=== PATIENT | female | born 1980 | race Caucasian/White ===

== ENCOUNTER 2017-01-24 03:57 | Inpatient (IN) | payer MEDICAID, OTHER ==
[~2017-01-24] VITALS: Ht 154.9 cm; Wt 113.2 kg
[2017-01-24] VITALS (8 sets, daily range): BP systolic 120–158; BP diastolic 77–90; PULSE 83–103; RESP 17–19; TEMP 98; Ht 154.9 cm; Wt 113.2 kg
[2017-01-24 04:55] LABS: ADD SCAN DIFF NO
[2017-01-24 05:47] LABS: BASOPHIL # 0.1 10^3/ul (0.0-0.1); BASOPHILS % 0.6 % (0.0-2.0); D-DIMER 1489.16 ng/ml (<460); EOSINOPHILS # 0.3 10^3/ul (0.0-0.5); EOSINOPHILS % 1.9 % (0.0-7.0); HEMATOCRIT 44.4 % (37.0-47.0); HEMOGLOBIN 14.5 g/dl (12.0-16.0); INR 0.99; LYMPHOCYTES # 3.8 10^3/ul (0.8-2.9); LYMPHOCYTES % 25.8 % (15.0-51.0); MEAN CORPUSCULAR HEMOGLOBIN 29.2 pg (29.0-33.0); MEAN CORPUSCULAR HGB CONC 32.7 g/dl (32.0-37.0); MEAN CORPUSCULAR VOLUME 89.5 fl (82.0-101.0); MEAN PLATELET VOLUME 12.7 fl (7.4-10.4); MONOCYTE # 0.7 10^3/ul (0.3-0.9); MONOCYTES % 4.6 % (0.0-11.0); NEUTROPHIL # 9.7 10^3/ul (1.6-7.5); NEUTROPHILS % 65.2 % (39.0-77.0); NUCLEATED RED BLOOD CELLS% 0.2 /100WBC (0.0-0.0); PARTIAL THROMBOPLASTIN TIME 28.1 Sec (25.0-35.0); PLATELET COUNT 162 10^3/UL (140-415); PROTIME 13.1 Sec (12.2-14.2); RED BLOOD COUNT 4.96 10^6/ul (4.20-5.40); RED CELL DISTRIBUTION WIDTH 13.5 % (11.5-14.5); WHITE BLOOD COUNT 14.9 10^3/ul (4.8-10.8)
[2017-01-24] MEDS ORDERED: MACI10TA PO (05:49)
[2017-01-24] MEDS ORDERED: SELE200T27 PO (05:49)
[2017-01-24] MEDS ORDERED: SILD25TA5 PO (05:50)
--- NOTE | 2017-01-24 06:07 | RADRPT ---
PROCEDURE: XR Chest. CLINICAL INDICATION: Chest Pain. TECHNIQUE: Portable single view of the chest COMPARISON: None. FINDINGS: The heart size appears slightly enlarged with possible prominence of the left atrial appendage. Top normal pulmonary vascularity. No definite acute infiltrate, pleural effusion, or overt congestive heart failure. No bony abnormality is seen. IMPRESSION: Probable mild cardiomegaly with slight possible left atrial appendage prominence. Top normal pulmon devang vascularity. RPTAT: HLBE Physician Stella Date Time Electronically viewed and signed by Gabrielle Eubanks Physician on 01/24/2017 06:06 LE/
[2017-01-24] MEDS ORDERED: ASPIRIN 81 MG TAB PO STA (06:09)
[2017-01-24] MEDS ORDERED: NITROGLYCERIN 2% 1 GM OINT PKT TD STA (06:09)
[2017-01-24 06:13] LABS: ALBUMIN 3.6 g/dl (3.3-4.9)
[2017-01-24] MEDS ORDERED: ALBUTEROL 0.083% (NEB) 2.5 MG/3 ML AMP HHN STA (06:13)
[2017-01-24 06:14] LABS: POTASSIUM 3.7 mmol/L (3.5-5.1)
[2017-01-24 06:16] LABS: BILIRUBIN,INDIRECT 0.2 mg/dl (0-1.1); BILIRUBIN,TOTAL 0.2 mg/dl (0.2-1.3); CREATININE 1.3 mg/dl (0.44-1.00)
[2017-01-24 06:17] LABS: ALBUMIN/GLOBULIN RATIO 0.94; CALCIUM 9.1 mg/dl (8.4-10.2); TOTAL PROTEIN 7.4 g/dl (6.1-8.1)
[2017-01-24 06:29] LABS: TROPONIN-I 0.031 ng/ml (0.00-0.12)
[2017-01-24] MEDS ORDERED: NITROGLYCERIN (SL) 0.4 MG TAB SL PRN ×2 (06:30→11:30)
[2017-01-24] MEDS ORDERED: SOD CHLORIDE 0.9% 100 ML ONE (06:45)
[2017-01-24] MEDS ORDERED: IOHEXOL 300MG/ML 150 ML BTL ONE (06:47)
[2017-01-24] MEDS ORDERED: SOD CHLORIDE 0.9% 1,000 ML IV STA (06:51)
[2017-01-24] MEDS ORDERED: BENZONATATE 100 MG CAP PO ONE (07:00)
[2017-01-24 07:05] LABS: ADD UMIC YES; URINE BILIRUBIN (Dip) NEGATIVE (NEGATIVE); URINE BLOOD (Dip) 1+ (NEGATIVE); URINE COLOR LT. YELLOW (YELLOW); URINE GLUCOSE (Dip) NEGATIVE (NEGATIVE); URINE KETONES (Dip) NEGATIVE (NEGATIVE); URINE LEUKOCYTE ESTERASE (Dip) NEGATIVE (NEGATIVE); URINE NITRITE (Dip) NEGATIVE (NEGATIVE); URINE TOTAL PROTEIN (Dip) 1+ (NEGATIVE); URINE UROBILINOGEN (Dip) 0.2 E.U./dL (0.1-1.0)
[2017-01-24 07:21] LABS: TRICHOMONAS,URINE OCCASIONAL
--- NOTE | 2017-01-24 07:21 | RADRPT ---
PROCEDURE: CTA Chest. CLINICAL INDICATION: Chest pain TECHNIQUE: The study was performed utilizing a multidetector CT scanner. Direct spiral 1 mm axial sections were obtained from the thoracic inlet to the upper abdomen with the use of 100 cc of Omnipa que-300 nonionic intravenous contrast material and reformatted at 3 mm. Coronal and sagittal reforma tions were obtained along with 3-D reconstructions. The images were reviewed on a PACS workstation. One or more of the following dose reduction techniques were used: - Automated exposure control. - Adjustment of the mA and/or kV according to patient size. Use of iterative reconstruction technique. DLP 846.1 mGycm CTDIvol 56.3 and 20.1 mGy COMPARISON: No prior studies are available for comparison. FINDINGS: The pulmonary arteries are within normal limits with no filling defects present to suggest pulmonary embolus. There is no evidence of aortic dissection. There is no cardiomegaly. There is an area of localized consolidation seen at the left lung base involving the basilar segment s of the left lower lobe.. Consolidation is slightly peribronchial appearance. There is trace perib ronchial ground-glass seen within the lateral segment of the right middle lobe. The The right lung is otherwise clear. There is no effusion or pneumothorax. The airways are patent. There are no enla rged mediastinal or axillary lymph nodes. Upper abdominal structures are within normal limits. There is no acute osseous abnormality. Mild deg enerative osteophytes are seen along the anterior aspect of the thoracic vertebral bodies. IMPRESSION: No CT evidence for pulmonary embolus. There is no aortic dissection. Patchy consolidation in the left lower lobe at the base concerning for pneumonia. There is a trace a mount of peribronchial ground-glass within the lateral segment of the right middle lobe which could represent an area of localized inflammation. RPTAT: AA .Navarro Owen MD, MD Date Time Electronically viewed and signed by .Navarro Owen MD, MD on 01/24/2017 07:20 .Bayron/
[2017-01-24] MEDS ORDERED: ONDANSETRON 4 MG INJ IV PRN ×2 (08:00→11:30)
[2017-01-24] MEDS ORDERED: ACETAMINOPHEN 325 MG TAB PO PRN ×2 (08:00→11:30)
[2017-01-24] MEDS ORDERED: CEFTRIAXONE 1 GM/50 ML (PMX) 50 ML IVPB ONE (08:00)
[2017-01-24] MEDS ORDERED: AZITHROMYCIN 500MG/NS (PMX) 250 ML IVPB ONE (08:00)
--- NOTE | 2017-01-24 08:26 | ERA ---
ER Documentation Chief Complaint Date/Time DATE: 01/24/17 TIME: 08:23 Chief Complaint MIDSTERNAL CP RADIATING TO BILAT. SHOULDERS AND SOB X2 DAYS. HPI Patient is a 36-year-old female with pulmonary hypertension who presents saying "I cannot breathe". She said the symptoms started a few days ago. She has cough but no fever. She has not taken her pulmonary hypertensive medicines for the past 2 weeks because she has changed insurance. She has chest pain which she describes as a midsternal pressure which radiates to both shoulders. Upon review of old medical records the patient one previous visit to the ER in 2006. ROS All systems reviewed and are negative except as per history of present illness. Medications Home Meds Reported Medications Sildenafil Citrate* (Viagra*) 25 Mg Tablet, PO DAILY Y for HTN IN THE LUNGS, TAB 01/24/17 Selexipag (Uptravi) 200 Mcg Tablet, PO, TAB 01/24/17 Macitentan (Opsumit) 10 Mg Tablet, 10 MG PO DAILY, TAB 01/24/17 Allergies Allergies: Coded Allergies: No Known Drug Allergy (Unverified Allergy, Unknown, 01/24/17) PMhx/Soc History of Surgery: No Anesthesia Reaction: No Hx Neurological Disorder: No Hx Respiratory Disorders: No Hx Cardiac Disorders: Yes (pulmonary htn) Hx Psychiatric Problems: No Hx Miscellaneous Medical Probl: No Hx Alcohol Use: No Hx Substance Use: No Hx Tobacco Use: No Smoking Status: Never smoker FmHx Family History: coronary disease Physical Exam Vitals Vital Signs Date Time Temp Pulse Resp B/P Pulse Ox O2 Delivery O2 Flow Rate FiO2 01/24/17 07:34 81 26 136/72 97 Room Air 01/24/17 06:34 93 22 97 21 01/24/17 04:57 98.0 79 26 100 Room Air 01/24/17 04:02 98.1 109 24 161/108 98 Physical Exam Const: Mild distress Head: Atraumatic Eyes: Normal Conjunctiva ENT: Normal External Ears, Nose and Mouth. Neck: Full range of motion..~ No meningismus. Resp: Decreased breath sounds bilaterally Cardio: Tachycardic rate without murmur Abd: Soft, non tender, non distended. Normal bowel sounds Skin: No petechiae or rashes Back: No midline or flank tenderness Ext: No cyanosis, or edema Neur: Awake and alert Psych: Normal Mood and Affect Result Diagram: 01/24/17 0448 01/24/17 0448 Results 24 hrs Laboratory Tests Test 01/24/17 04:48 01/24/17 06:12 White Blood Count 14.910^3/ul Red Blood Count 4.9610^6/ul Hemoglobin 14.5g/dl Hematocrit 44.4% Mean Corpuscular Volume 89.5fl Mean Corpuscular Hemoglobin 29.2pg Mean Corpuscular Hemoglobin Concent 32.7g/dl Red Cell Distribution Width 13.5% Platelet Count 06052^3/UL Mean Platelet Volume 12.7fl Neutrophils % 65.2% Lymphocytes % 25.8% Monocytes % 4.6% Eosinophils % 1.9% Basophils % 0.6% Nucleated Red Blood Cells % 0.2/100WBC Neutrophils # 9.710^3/ul Lymphocytes # 3.810^3/ul Monocytes # 0.710^3/ul Eosinophils # 0.310^3/ul Basophils # 0.110^3/ul Nucleated Red Blood Cells # 0.010^3/ul Prothrombin Time 13.1Sec Prothrombin Time Ratio 1.0 INR International Normalized Ratio 0.99 Activated Partial Thromboplast Time 28.1Sec D-Dimer 1489.16ng/ml D-Dimer Comment Sodium Level 145mmol/L Potassium Level 3.7mmol/L Chloride Level 109mmol/L Carbon Dioxide Level 25mmol/L Anion Gap 15 Blood Urea Nitrogen 23mg/dl Creatinine 1.30mg/dl Glucose Level 78mg/dl Calcium Level 9.1mg/dl Total Bilirubin 0.2mg/dl Direct Bilirubin 0.00mg/dl Indirect Bilirubin 0.2mg/dl Aspartate Amino Transf (AST/SGOT) 36IU/L Alanine Aminotransferase (ALT/SGPT) 58IU/L Alkaline Phosphatase 68IU/L Troponin I 0.031ng/ml B-Type Natriuretic Peptide 4570PG/ML Total Protein 7.4g/dl Albumin 3.6g/dl Globulin 3.80g/dl Albumin/Globulin Ratio 0.94 Urine Color LT. YELLOW Urine Clarity CLEAR Urine pH 6.0 Urine Specific Switzer 1.020 Urine Ketones NEGATIVE Urine Nitrite NEGATIVE Urine Bilirubin NEGATIVE Urine Urobilinogen 0.2 E.U./dL Urine Leukocyte Esterase NEGATIVE Urine Microscopic RBC 2-5/HPF Urine Microscopic WBC 2-5/HPF Urine Epithelial Cells FEW Urine Trichomonas OCCASIONAL Urine Hemoglobin 1+ Urine Glucose NEGATIVE% Urine Total Protein 1+ Current Medications Medications (Trade) Dose Ordered Sig/Justin Route PRN Reason Start Time Stop Time Status Last Admin Dose Admin Aspirin (Aspirin) 162 mg ONCE STAT PO 01/24/17 06:09 01/24/17 06:10 DC 01/24/17 06:43 Nitroglycerin (Nitroglycerin 2% Oint) 1 inch ONCE STAT TD 01/24/17 06:09 01/24/17 06:10 DC 01/24/17 06:44 Nitroglycerin (Nitroglycerin (Sl Tab) 0.4 Mg) 1 tab Q5M UP TO 3 DOSES PRN SL CHEST PAIN 01/24/17 06:30 01/24/17 06:44 Albuterol 5 mg 5 mg ONCE STAT HHN 01/24/17 06:13 01/24/17 06:14 DC 01/24/17 06:45 Sodium Chloride (NS) 100 ml @ ud STK-MED ONCE .ROUTE 01/24/17 06:45 01/24/17 06:46 DC 01/24/17 07:16 Iohexol (Omnipaque 300mg/ ml) 150 ml STK-MED ONCE .ROUTE 01/24/17 06:47 01/24/17 06:48 DC 01/24/17 07:16 Benzonatate 200 mg 200 mg ONCE ONCE PO 01/24/17 07:00 01/24/17 07:01 DC 01/24/17 07:03 Sodium Chloride 1,000 ml @ 1,000 mls/hr Q1H STAT IV 01/24/17 06:51 01/24/17 07:50 DC 01/24/17 07:03 Ceftriaxone Sodium 50 ml @ 100 mls/hr ONCE ONCE IVPB 01/24/17 08:00 01/24/17 08:29 01/24/17 07:58 Azithromycin (Zithromax 500mg/ NS (Pmx)) 250 ml @ 250 mls/hr ONCE ONCE IVPB 01/24/17 08:00 01/24/17 08:59 Ondansetron HCl (Zofran Inj) 4 mg ER BRIDGE PRN IV NAUSEA AND/OR VOMITING 01/24/17 08:00 01/25/17 07:59 Acetaminophen (Tylenol Tab) 650 mg ER BRIDGE PRN PO MILD PAIN/FEVER 01/24/17 08:00 01/25/17 07:59 Procedures/MDM PROCEDURE: XR Chest. CLINICAL INDICATION: Chest Pain. TECHNIQUE: Portable single view of the chest COMPARISON: None. FINDINGS: The heart size appears slightly enlarged with possible prominence of the left atrial appendage. Top normal pulmonary vascularity. No definite acute infiltrate, pleural effusion, or overt congestive heart failure. No bony abnormality is seen. IMPRESSION: Probable mild cardiomegaly with slight possible left atrial appendage prominence. Top normal pulmonary vascularity. RPTAT: HLBE Physician Stella Date Time Electronically viewed and signed by Gabrielle Eubanks Physician on 01/24/2017 06 :06 CT chest shows no pulmonary embolism or aortic dissection but it does show a pneumonia per radiology. EKG #1 read by me: Rate/Rhythm: Tachycardic rate Intervals: Normal Impression: Diffuse ST depressions in the inferior and lateral leads EKG #2 read by me: Rate/Rhythm: Tachycardia Intervals: Normal Impression: Diffuse ST depressions in the inferior and lateral leads without change from the first EKG Patient is a 36-year-old female with pulmonary hypertension presents with chest pain and shortness of breath. Her EKG show ST depressions diffusely. The patient had an elevated d-dimer and therefore a CT scan of the chest was performed to rule out pulmonary embolism. This was negative for pulmonary embolism but did show a pneumonia. The patient was given ceftriaxone and Zithromax empirically for community associated pneumonia. The patient was given aspirin nitroglycerin as well for potential acute coronary syndrome. At this point I doubt pneumothorax, pulmonary embolism, or aortic dissection. I spoke with Dr. Lantigua from [facility] given the patient's insurance for admission to a telemetry bed. I doubt sepsis at this time. Departure Diagnosis: Primary Impression: Chest pain Qualified Code: R07.9 - Chest pain, unspecified type Additional Impressions: Pneumonia Qualified Code: J18.9 - Pneumonia due to infectious organism, unspecified laterality, unspecified part of lung Pulmonary hypertension Condition: INOCENCIO Peck MD January 24, 2017 08:26
[2017-01-24] MEDS ORDERED: BISACODYL 10 MG SUPP PR PRN (11:30)
[2017-01-24] MEDS ORDERED: HYDROCODONE/APAP (5/325) TAB PO PRN (11:30)
[2017-01-24] MEDS ORDERED: MAGNESIUM HYDROXIDE 30ML CUP PO PRN (11:30)
[2017-01-24] MEDS ORDERED: NACL 0.9% 3 ML SYG IV SCH (11:30)
[2017-01-24] MEDS ORDERED: ALBUTEROL 0.083% (NEB) 2.5 MG/3 ML AMP HHN PRN (11:30)
[2017-01-24] MEDS ORDERED: DOCUSATE SODIUM 100 MG CAP PO PRN (11:30)
[2017-01-24] MEDS ORDERED: ALBUTEROL/IPRATROPIUM (NEB) 3 ML AMP HHN PRN (12:00)
[2017-01-24] MEDS: ALBUTEROL/IPRATROPIUM (NEB) 3 ML AMP HHN SCH (12:11)
--- NOTE | 2017-01-24 13:29 | RADRPT ---
Echocardiogram Report Patient Name: MARIANELA ROQUE Gender: Female Date: 1980 Study Date: 24-Jan-2017 Hose Mender: Nikolas [facility] Location: [id number] Ref. Physician: RENATA KIRK Quality: Adequate Procedures: Transthoracic echocardiogram with complete 2D, M-Mode, and doppler examination. Indications: Severe Pulmonary Hypertension. 2D/M Mode Doppler Measurement Value Normal Ranges Measurement Value Normal Ranges LVIDd 2D 4.5 3.5 - 5.6 cm AV Peak Fan 1.1 m/sec LVIDs 2D 3.2 2.1 - 4.1 cm AV Peak PG 5.2 mmHg LVPWd 2D 1.2 0.6 - 1.1 cm LVOT Peak Fan 1.1 m/sec IVSd 2D 1.2 0.6 - 1.1 cm LVOT Peak PG 4.9 mmHg AoR Diam 2D 2.6 2.0 - 3.7 cm MV E Peak Fan 0.4 m/sec EDV 2D 94.8 cm3 MV A Peak Fan 0.6 m/sec ESV 2D 32.1 cm3 MV E/A 0.7 MV Decel Time 206 msec MV [place] 2 MV E/A 0.7 TR Peak Fan 5.3 m/sec TR Peak PG 112.2 mmHg RVSP 115.0 mmHg Findings Left Ventricle: Normal left ventricular systolic function. Normal left ventricular cavity size. Left ventricular wall thickness upper limits of normal. Ejection fraction is visually estimated at 65 %. Abnormal Diastolic Function. Right Ventricle: Moderate enlargement of right ventricle. Mild right ventricular hypokinesis. Flattened Septum consistent with RV pressure overload. Left Atrium: There is mild enlargement of left atrium. Right Atrium: There is severe enlargement of right atrium. Mitral Valve: Mitral valve leaflets appear mildly thickened. Trace mitral regurgitation. Aortic Valve: Normal appearance of the aortic valve. No significant aortic stenosis or insufficiency. Tricuspid Valve: Normal appearance of the tricuspid valve. Right ventricular systolic pressure is consistent with severe pulmonary hypertension. Estimated peak PA systolic pressure 115 mmHg. There is at least moderate tricuspid regurgitation. Pulmonic Valve: Normal pulmonic valve appearance. There is mild pulmonic regurgitation. Pericardium: Normal pericardium with no significant pericardial effusion. Aorta: Normal aortic root. IVC: Dilated IVC with respiratory collapse consistent with elevated right atrial pressure. Conclusions Normal left ventricular systolic function. Normal left ventricular cavity size. Left ventricular wall thickness upper limits of normal. Ejection fraction is visually estimated at 65 %. Abnormal Diastolic Function. Moderate enlargement of right ventricle. Mild right ventricular hypokinesis. There is mild enlargement of left atrium. There is severe enlargement of right atrium. Right ventricular systolic pressure is consistent with severe pulmonary hypertension. Estimated peak PA systolic pressure 115 mmHg. There is at least moderate tricuspid regurgitation. No significant valvular stenosis or regurgitation seen of remaining visualized valves. Normal pericardium with no significant pericardial effusion. Electronically Signed By: Rajiv Copeland 24-Jan-2017 13:28:21 -0700 Patient Name: MARIANELA ROQUE Study Date: 24-Jan-2017 [id number]
[2017-01-24 13:43] LABS: CK-MB 1.81 ng/ml (0.0-2.4); TROPONIN-I 0.014 ng/ml (0.00-0.12)
[2017-01-24] MEDS: SILDENAFIL 20 MG TAB PO SCH ×2 (15:07→21:29)
[2017-01-24 19:13] LABS: CREATINE KINASE 144 IU/L (23-200)
[2017-01-24 19:27] LABS: CK-MB 1.67 ng/ml (0.0-2.4)
[2017-01-24 19:35] LABS: TROPONIN-I < 0.012 ng/ml (0.00-0.12)
[2017-01-24] MEDS: FAMOTIDINE 20 MG TAB PO SCH (21:28)
[2017-01-24] MEDS: GUAIFENESIN/DM 5ML CUP PO PRN (21:28)
[2017-01-24] MEDS: HYDROCODONE/APAP (5/325) TAB PO PRN (21:29)
[2017-01-25] VITALS (13 sets, daily range): BP systolic 115–160; BP diastolic 79–90; PULSE 54–94; RESP 17–20
[2017-01-25] MEDS: ALBUTEROL/IPRATROPIUM (NEB) 3 ML AMP HHN SCH ×4 (00:19→23:36)
[2017-01-25] MEDS: LEVOFLOXACIN 750 MG TABLET PO SCH (05:42)
--- NOTE | 2017-01-25 06:37 | HP ---
DATE OF ADMISSION: 01/24/2017 PRIMARY CARE PHYSICIAN: Unknown. REFERRED ENGINEERING TECHNOLOGY INSTRUCTOR: Unknown. The patient has not seen anybody. CHIEF COMPLAINT ON ADMISSION: Shortness of breath. HISTORY OF PRESENT ILLNESS: This is a 36-year-old female with apparently diagnosed severe pulmonary hypertension [address] [facility]. The patient reports that she presented then with shortness of breath. She had a right heart catheterization and was diagnosed with severe pulmonary hypertension. She was placed on 3 medications including sildenafil, macitentan , and selexipag. The patient was taking it at home, apparently changed insurance a couple weeks ago and was unable to refill any of her medication. She was able to take the Viagra or sildenafil until yesterday when she ran out. In the meantime, her shortness of breath has been worsening. She started having a cough and some chest pressure 2 days ago. The sputum, when she coughed , turned green and her chest pressure was worsening, especially with the cough. She came to the emergency department, she was found to be in respiratory distress. She was given a nebulizer treatment along with supplemental oxygen. She had a chest x-ray followed by CT angiogram of the chest. On the CTA of the chest, there is a left lower lobe infiltration and opacification that are suspicious for pneumonia. Her white blood cell count is slightly elevated at 14. She is currently admitted on telemetry as her EKG was slightly abnormal, she does have some mild right ventricular hypertrophy, which is probably secondary to her pulmonary hypertension at this point, but no other acute ST or T-wave abnormalities. I will get reports from [facility]. In the meantime, she is started on the sildenafil here. She is put on Revatio actually 20 mg p.o. t.i.d. We do not have the other 2 medications at this time. A repeat echocardiogram is pending and once we get all the data, the patient will need referral to pulmonary through her insurance. For now she is being treated for pneumonia and exacerbation of her pulmonary hypertension. She also has a history of smoking. She quit 3 months ago. Apparently she was told at [facility] that her pulmonary hypertension is secondary to her smoking and she will receive here nebulizer treatment for bronchospasms. ALLERGIES: NO KNOWN ALLERGIES. PAST MEDICAL HISTORY: 1. Severe pulmonary arterial hypertension, awaiting records from [facility]. 2. Previous tobacco use. PAST SURGICAL HISTORY: Status post right heart cath [address] [facility]. OUTPATIENT MEDICATIONS: 1. Sildenafil 25 mg daily as needed. 2. Opsumit 10 mg p.o. daily. 3. Uptravi 200 mcg daily. REVIEW OF SYSTEMS: As per HPI. The patient also reports diarrhea over the past couple of days. She otherwise denies any ongoing dizziness except when she is coughing. No genitourinary complaints. No sick contacts. No fevers. She does have some nausea with coughing fit, but no vomiting. SOCIAL HISTORY: The patient lives with her boyfriend, she does not drink alcohol. She quit smoking 3 years ago. She used to smoke a half a pack a day for a total of 20 years. PHYSICAL EXAMINATION: VITAL SIGNS: Temperature 98.0, heart rate in 96, sinus rhythm, respiratory rate 17, blood pressure 130/77. She is currently satting at 100% on 4 liters nasal cannula and previously she was 91 to 100% on room air, she is bronchospastic. GENERAL: She is alert and oriented x4. She is in no distress currently while having an episode of bronchospasm, shortness of breath and also diaphoretic. HEENT: Pupils are equally round and reactive to light. Extraocular muscles are intact. Anicteric sclerae. NECK: No JVD, no thyromegaly noted. HEART: Regular rate and rhythm. No murmur, rubs, or gallops. LUNGS: She does have decreased breath sounds at the bases, left base more than the right. Otherwise, no wheezing heard. She is bronchospastic currently. ABDOMEN: Soft, nontender, nondistended. Bowel sounds are present. EXTREMITIES: No edema, clubbing or cyanosis. NEUROLOGIC: Grossly intact. LABORATORY DATA: White blood cell count is 14.9, hemoglobin 14.5, hematocrit 44.4, platelet count of 162. Chemistry with a sodium of 145, potassium 3.7, chloride 109, bicarbonate 25, BUN 23, creatinine 1.3, calcium 9.1, AST 36, ALT 58, alkaline phosphatase 68. Troponin 0.031. total protein 7.5, albumin 3.6. INR is 0.99, PT 13.1, PTT 28.1, D-dimer was 1489. Urine analysis is grossly negative. EKG did show sinus rhythm with incomplete right bundle branch block and right ventricular hypertrophy with some non specific T wave abnormalities, no other acute T wave abnormality. RADIOLOGICAL DATA: 1. Chest x-ray did show probable mild cardiomegaly 2. CT angiogram of the chest did show no pulmonary embolism, no aortic dissection, patchy consolidation left lower lobe at the base concerning for pneumonia, a trace amount of peribronchial ground glass within the lateral segment of the right middle lobe which could represent localized inflammation. ASSESSMENT AND PLAN: This is a 36-year-old female with: 1. Pneumonia or bronchopneumonia based on her recent symptoms and also laboratory data and CT findings. She was given a dose of Rocephin and azithromycin in the ER. We will place her on Levaquin from now on, and she will need to complete dose as an outpatient. Given her history of tobacco use, she also was started on DuoNebs as she seems to have bronchospasm. Supplemental oxygen as needed, is on board. 2. Reported severe pulmonary hypertension confirmed on the right heart catheterization according to the patient. Will obtain records from [facility]. She is started on Revatio here in order to approve her Revatio and treatment for pulmonary hypertension as an outpatient. She will need data from the right heart catheterization anyway. Continue supplemental oxygen, prn. 3. Acute kidney injury versus chronic kidney disease. At this point, the patient will be placed on low dose IV fluids and we will monitor her renal function closely. 4. Prophylaxis. Lovenox for deep venous thrombosis prophylaxis and Pepcid for gastrointestinal prophylaxis. DISPOSITION: Patient is admitted to telemetry. We will place her on observation for now while her while her pulmonary hypertension medications are being restarted and she is being treated for bronchopneumonia. Dictated By: CAMILA FRAGOSO/AGATHA Conf#: [id number] DID#: [id number]
[2017-01-25 07:35] LABS: ADD SCAN DIFF NO
[2017-01-25 07:42] LABS: BASOPHIL # 0.1 10^3/ul (0.0-0.1); BASOPHILS % 0.7 % (0.0-2.0); EOSINOPHILS # 0.5 10^3/ul (0.0-0.5); EOSINOPHILS % 3.9 % (0.0-7.0); HEMATOCRIT 38.9 % (37.0-47.0); HEMOGLOBIN 13.1 g/dl (12.0-16.0); LYMPHOCYTES % 32.6 % (15.0-51.0); MEAN CORPUSCULAR HEMOGLOBIN 30.2 pg (29.0-33.0); MEAN CORPUSCULAR HGB CONC 33.7 g/dl (32.0-37.0); MEAN CORPUSCULAR VOLUME 89.6 fl (82.0-101.0); MEAN PLATELET VOLUME 12.3 fl (7.4-10.4); MONOCYTE # 0.7 10^3/ul (0.3-0.9); MONOCYTES % 5.5 % (0.0-11.0); NEUTROPHIL # 6.8 10^3/ul (1.6-7.5); NEUTROPHILS % 55.6 % (39.0-77.0); PLATELET COUNT 142 10^3/UL (140-415); RED BLOOD COUNT 4.34 10^6/ul (4.20-5.40); RED CELL DISTRIBUTION WIDTH 13.3 % (11.5-14.5); WHITE BLOOD COUNT 12.2 10^3/ul (4.8-10.8)
[2017-01-25 08:00] LABS: ALBUMIN 3.2 g/dl (3.3-4.9)
[2017-01-25 08:01] LABS: POTASSIUM 3.8 mmol/L (3.5-5.1)
[2017-01-25 08:03] LABS: BILIRUBIN,INDIRECT 0.3 mg/dl (0-1.1); BILIRUBIN,TOTAL 0.3 mg/dl (0.2-1.3); CREATININE 0.99 mg/dl (0.44-1.00)
[2017-01-25 08:04] LABS: ALBUMIN/GLOBULIN RATIO 0.94; CALCIUM 8.5 mg/dl (8.4-10.2); CHOL/HDL RATIO 3.9 RATIO; MAGNESIUM 1.7 mg/dl (1.7-2.5); TOTAL PROTEIN 6.6 g/dl (6.1-8.1)
[2017-01-25] MEDS: ENOXAPARIN 30 MG/0.3 ML SYG SC SCH (09:00)
[2017-01-25] MEDS: FAMOTIDINE 20 MG TAB PO SCH ×2 (09:28→19:52)
[2017-01-25] MEDS: SILDENAFIL 20 MG TAB PO SCH ×3 (09:28→19:52)
[2017-01-25] MEDS: ASPIRIN 81 MG TAB PO SCH (09:28)
--- NOTE | 2017-01-25 15:29 | PN ---
Date/Time of Note Date/Time of Note DATE: 01/25/17 TIME: 15:06 Assessment/Plan VTE Prophylaxis VTE Prophylaxis Intervention: LMWH Lines/Catheters IV Catheter Type (from Nrs): Saline Lock Assessment/Plan Assessment/Plan 36-year-old female with: 1. Pneumonia or bronchopneumonia based on her recent symptoms and also laboratory data and CT findings. Continue Levaquin Continue Duonebs O2 supp as needed. Outpatient PFTs derrell arranged 2. Severe pulmonary hypertension ( WHO class 1, NYHA class III) confirmed on the right heart catheterization at [facility] also on Echo here Continue Revatio at least and patient likely need to be referred to [facility] per Pulmonary Referral to [facility] Pulmonary 3. Acute kidney injury. Resolved D/c IVF. Prophylaxis. Lovenox for deep venous thrombosis prophylaxis and Pepcid for gastrointestinal prophylaxis. DISPOSITION: Continue Levaquin for bronchopneumonia and rx for Severe Pulmonary Hypertension. D/c plan in AM with referral to [facility] Pulmonary Subjective 24 Hr Interval Summary Free Text/Dictation Patient doing OK and on RA Continue current care an paln for d/c home tomorrow with referral to [facility] Pulmo for severe IPH and also COPD likely, pFTS still pending per outpatient records Exam/Review of Systems Vital Signs Vitals Vital Signs Date Time Temp Pulse Resp B/P Pulse Ox O2 Delivery O2 Flow Rate FiO2 01/25/17 12:00 88 01/25/17 11:53 98.3 20 131/80 94 01/25/17 07:55 21 01/24/17 20:00 Nasal Cannula 2.0 Intake and Output 01/24/17 01/24/17 01/25/17 15:00 23:00 07:00 Intake Total 250 ml 200 ml 250 ml Balance 250 ml 200 ml 250 ml Exam Constitutional: alert, oriented, well developed Respiratory: clear to auscultation, normal air movement Cardiovascular: nl pulses, regular rate and rhythm Gastrointestinal: non-tender, soft Musculoskeletal: nl extremities to inspection, nl gait and stance Extremities: normal pulses Neurological: UNIX CONSULTANT II-XII intact, nl mental status, nl speech, nl strength Results Result Diagram: 01/25/17 0720 01/25/17 0720 Results 24 hrs Laboratory Tests Test 01/24/17 18:20 01/25/17 07:20 Creatine Kinase 144 Creatine Kinase Index 1.2 Creatinine Kinase MB (Mass) 1.67 Troponin I < 0.012 White Blood Count 12.2 H Red Blood Count 4.34 Hemoglobin 13.1 Hematocrit 38.9 Mean Corpuscular Volume 89.6 Mean Corpuscular Hemoglobin 30.2 Mean Corpuscular Hemoglobin Concent 33.7 Red Cell Distribution Width 13.3 Platelet Count 142 Mean Platelet Volume 12.3 H Neutrophils % 55.6 Lymphocytes % 32.6 Monocytes % 5.5 Eosinophils % 3.9 Basophils % 0.7 Nucleated Red Blood Cells % 0.0 Neutrophils # 6.8 Lymphocytes # 4.0 H Monocytes # 0.7 Eosinophils # 0.5 Basophils # 0.1 Nucleated Red Blood Cells # 0.0 Sodium Level 140 Potassium Level 3.8 Chloride Level 107 Carbon Dioxide Level 25 Anion Gap 12 Blood Urea Nitrogen 19 Creatinine 0.99 Glucose Level 95 Calcium Level 8.5 Magnesium Level 1.7 Total Bilirubin 0.3 Direct Bilirubin 0.00 Indirect Bilirubin 0.3 Aspartate Amino Transf (AST/SGOT) 36 Alanine Aminotransferase (ALT/SGPT) 56 Alkaline Phosphatase 56 Total Protein 6.6 Albumin 3.2 L Globulin 3.40 H Albumin/Globulin Ratio 0.94 Triglycerides Level 130 Cholesterol Level 121 LDL Cholesterol, Calculated 64 HDL Cholesterol 31 L Cholesterol/HDL Ratio 3.9 Medications Medications Current Medications Ondansetron HCl (Zofran Inj) 4 mg Q6H PRN IV NAUSEA AND/OR VOMITING; Start at 11:30 Aspirin (Aspirin) 81 mg DAILY PO Last administered on 01/25/17 09:28; Admin Dose 81 MG; Start 01/25/17 at 09:00 Nitroglycerin (Nitroglycerin (Sl Tab) 0.4 Mg) 1 tab Q5M PRN SL CHEST PAIN; Start 01/24/17 at 11:30 Acetaminophen (Tylenol Tab) 650 mg Q6H PRN PO PAIN LEVEL 1-3 OR FEVER; Start at 11:30 Acetaminophen/ Hydrocodone Bitart ([place] (5/325)) 1 tab Q6H PRN PO PAIN LEVEL 4 -6; Start 01/24/17 at 11:30 Acetaminophen/ Hydrocodone Bitart ([place] (5/325)) 2 tab Q6H PRN PO PAIN LEVEL 7 -10 Last administered on 01/24/17 21:29; Admin Dose 2 TAB; Start 01/24/17 at 11 :30 Docusate Sodium (Colace) 100 mg Q12H PRN PO CONSTIPATION; Start 01/24/17 at 11: 30 Magnesium Hydroxide (Milk Of Mag) 30 ml DAILY PRN PO CONSTIPATION; Start at 11:30 Bisacodyl (Dulcolax Supp) 10 mg DAILY PRN [place] CONSTIPATION; Start 01/24/17 at 11 :30 Famotidine (Pepcid) 20 mg Q12 PO Last administered on 01/25/17 09:28; Admin Dose 20 MG; Start 01/24/17 at 21:00 Enoxaparin Sodium (Lovenox) 30 mg DAILY SC ; Start 01/25/17 at 09:00 Levofloxacin (Levaquin) 750 mg DAILY@06 PO Last administered on 01/25/17 05:42 ; Admin Dose 750 MG; Start 01/25/17 at 06:00 Sildenafil Citrate (Revatio) 20 mg TID PO Last administered on 01/25/17 12:56 ; Admin Dose 20 MG; Start 01/24/17 at 13:00 Guaifenesin/ Dextromethorphan (Robitussin Dm Liquid Cup) 10 ml Q4H PRN PO COUGH Last administered on 01/24/17 21:28; Admin Dose 10 ML; Start 01/24/17 at 21:00 Procedures Procedures Echocardiogram Report Patient Name: MARIANELA ROQUE Gender: Female Date: 1980 Study Date: 24-Jan-2017 Green Marketing Specialist: Nikolas [facility] Location: [id number] Ref. Physician: RENATA KIRK Quality: Adequate Procedures: Transthoracic echocardiogram with complete 2D, M-Mode, and doppler examination. Indications: Severe Pulmonary Hypertension. 2D/M Mode Doppler Measurement Value Normal Ranges Measurement Value Normal Ranges LVIDd 2D 4.5 3.5 - 5.6 cm AV Peak Fan 1.1 m/sec LVIDs 2D 3.2 2.1 - 4.1 cm AV Peak PG 5.2 mmHg LVPWd 2D 1.2 0.6 - 1.1 cm LVOT Peak Fan 1.1 m/sec IVSd 2D 1.2 0.6 - 1.1 cm LVOT Peak PG 4.9 mmHg AoR Diam 2D 2.6 2.0 - 3.7 cm MV E Peak Fan 0.4 m/sec EDV 2D 94.8 cm3 MV A Peak Fan 0.6 m/sec ESV 2D 32.1 cm3 MV E/A 0.7 MV Decel Time 206 msec MV Decel [place] 2 MV E/A 0.7 TR Peak Fan 5.3 m/sec TR Peak PG 112.2 mmHg RVSP 115.0 mmHg Findings Left Ventricle: Normal left ventricular systolic function. Normal left ventricular cavity size. Left ventricular wall thickness upper limits of normal. Ejection fraction is visually estimated at 65 %. Abnormal Diastolic Function. Right Ventricle: Moderate enlargement of right ventricle. Mild right ventricular hypokinesis. Flattened Septum consistent with RV pressure overload. Left Atrium: There is mild enlargement of left atrium. Right Atrium: There is severe enlargement of right atrium. Mitral Valve: Mitral valve leaflets appear mildly thickened. Trace mitral regurgitation. Aortic Valve: Normal appearance of the aortic valve. No significant aortic stenosis or insufficiency. Tricuspid Valve: Normal appearance of the tricuspid valve. Right ventricular systolic pressure is consistent with severe pulmonary hypertension. Estimated peak PA systolic pressure 115 mmHg. There is at least moderate tricuspid regurgitation. Pulmonic Valve: Normal pulmonic valve appearance. There is mild pulmonic regurgitation. Pericardium: Normal pericardium with no significant pericardial effusion. Aorta: Normal aortic root. IVC: Dilated IVC with respiratory collapse consistent with elevated right atrial pressure. Conclusions Normal left ventricular systolic function. Normal left ventricular cavity size. Left ventricular wall thickness upper limits of normal. Ejection fraction is visually estimated at 65 %. Abnormal Diastolic Function. Moderate enlargement of right ventricle. Mild right ventricular hypokinesis. There is mild enlargement of left atrium. There is severe enlargement of right atrium. Right ventricular systolic pressure is consistent with severe pulmonary hypertension. Estimated peak PA systolic pressure 115 mmHg. There is at least moderate tricuspid regurgitation. No significant valvular stenosis or regurgitation seen of remaining visualized valves. Normal pericardium with no significant pericardial effusion. Electronically Signed By: Rajiv Copeland 24-Jan-2017 13:28:21 -0700 CAMILA KIRK January 25, 2017 15:26
[2017-01-25] MEDS: GUAIFENESIN/DM 5ML CUP PO PRN (19:52)
[2017-01-25] MEDS: HYDROCODONE/APAP (5/325) TAB PO PRN (20:58)
[2017-01-26] VITALS (13 sets, daily range): BP systolic 108–141; BP diastolic 68–98; PULSE 80–104; RESP 18–20
[2017-01-26] MEDS: LEVOFLOXACIN 750 MG TABLET PO SCH (05:19)
[2017-01-26] MEDS: ALBUTEROL/IPRATROPIUM (NEB) 3 ML AMP HHN SCH ×2 (08:14→16:50)
[2017-01-26] MEDS: SILDENAFIL 20 MG TAB PO SCH ×3 (08:42→21:37)
[2017-01-26] MEDS: ASPIRIN 81 MG TAB PO SCH (08:42)
[2017-01-26] MEDS: FAMOTIDINE 20 MG TAB PO SCH ×2 (08:42→21:37)
[2017-01-26] MEDS: ENOXAPARIN 30 MG/0.3 ML SYG SC SCH (08:45)
--- NOTE | 2017-01-26 13:35 | PN ---
Date/Time of Note Date/Time of Note DATE: 01/26/17 TIME: 13:32 Assessment/Plan VTE Prophylaxis VTE Prophylaxis Intervention: LMWH Lines/Catheters IV Catheter Type (from Nrsg): Saline Lock Assessment/Plan Assessment/Plan 36-year-old female with: 1. Pneumonia or bronchopneumonia based on her recent symptoms and also laboratory data and CT findings. Continue Levaquin Will discharge on Combivent Outpatient PFTs to be arranged and referral to tertiary center 2. Severe pulmonary hypertension ( WHO class 1, NYHA class III) [place] [facility] [place] Continue Revatio at least and patient likely need to be referred to [facility] per Pulmonary Referral to [facility] Pulmonary 3. Acute kidney injury. Resolved. Prophylaxis. Lovenox for deep venous thrombosis prophylaxis and Pepcid for gastrointestinal prophylaxis. DISPOSITION: Continue Levaquin for bronchopneumonia and rx for Severe Pulmonary Hypertension. D/c home today with referral to [facility] Pulmonary Subjective 24 Hr Interval Summary Free Text/Dictation Patient doing OK x 2 days No complaints and plan for d/c home today with referral to pulmonary again Exam/Review of Systems Vital Signs Vitals Vital Signs Date Time Temp Pulse Resp B/P Pulse Ox O2 Delivery O2 Flow Rate FiO2 01/26/17 13:00 80 01/26/17 12:26 98.4 18 116/68 92 01/26/17 08:14 21 01/24/17 20:00 Nasal Cannula 2.0 Intake and Output 01/25/17 01/25/17 01/26/17 15:00 23:00 07:00 Intake Total 920 ml 500 ml Balance 920 ml 500 ml Exam Constitutional: alert, obese, oriented, well developed Respiratory: clear to auscultation, normal air movement Cardiovascular: nl pulses, regular rate and rhythm Gastrointestinal: non-tender, soft Musculoskeletal: nl extremities to inspection Extremities: normal pulses, other (no edema, clubbing or cyanosis ) Neurological: DEPUT[employer]ONWE[employer]'S ATTORNEY II-XII intact, nl mental status, nl speech, nl strength Results Result Diagram: 01/25/17 0720 01/25/17 0720 Medications Medications Current Medications Ondansetron HCl (Zofran Inj) 4 mg Q6H PRN IV NAUSEA AND/OR VOMITING; Start at 11:30 Aspirin (Aspirin) 81 mg DAILY PO Last administered on 01/26/17 08:42; Admin Dose 81 MG; Start 01/25/17 at 09:00 Nitroglycerin (Nitroglycerin (Sl Tab) 0.4 Mg) 1 tab Q5M PRN SL CHEST PAIN; Start 01/24/17 at 11:30 Acetaminophen (Tylenol Tab) 650 mg Q6H PRN PO PAIN LEVEL 1-3 OR FEVER; Start at 11:30 Acetaminophen/ Hydrocodone Bitart ([place] (5/325)) 1 tab Q6H PRN PO PAIN LEVEL 4 -6; Start 01/24/17 at 11:30 Acetaminophen/ Hydrocodone Bitart ([place] (5/325)) 2 tab Q6H PRN PO PAIN LEVEL 7 -10 Last administered on 01/25/17 20:58; Admin Dose 2 TAB; Start 01/24/17 at 11 :30 Docusate Sodium (Colace) 100 mg Q12H PRN PO CONSTIPATION; Start 01/24/17 at 11: 30 Magnesium Hydroxide (Milk Of Mag) 30 ml DAILY PRN PO CONSTIPATION; Start at 11:30 Bisacodyl (Dulcolax Supp) 10 mg DAILY PRN [place] CONSTIPATION; Start 01/24/17 at 11 :30 Famotidine (Pepcid) 20 mg Q12 PO Last administered on 01/26/17 08:42; Admin Dose 20 MG; Start 01/24/17 at 21:00 Enoxaparin Sodium (Lovenox) 30 mg DAILY SC Last administered on 01/26/17 08:45 ; Admin Dose 30 MG; Start 01/25/17 at 09:00 Levofloxacin (Levaquin) 750 mg DAILY@06 PO Last administered on 01/26/17 05:19 ; Admin Dose 750 MG; Start 01/25/17 at 06:00 Sildenafil Citrate (Revatio) 20 mg TID PO Last administered on 01/26/17 13:25 ; Admin Dose 20 MG; Start 01/24/17 at 13:00 Guaifenesin/ Dextromethorphan (Robitussin Dm Liquid Cup) 10 ml Q4H PRN PO COUGH Last administered on 01/25/17 19:52; Admin Dose 10 ML; Start 01/24/17 at 21:00 CAMILA KIRK January 26, 2017 13:35
--- NOTE | 2017-01-26 13:45 | PDOCDIS ---
Discharge Instructions CONDITION Patient Condition: Good ACTIVITY: Activity Restrictions: Slowly Increase Activity FOLLOW UP/APPOINTMENTS Appointments Follow up with PCP within 1 week Referral to Pulmonary/tertiary center through [facility] group CAMILA KIRK January 26, 2017 13:45
[2017-01-26] MEDS ORDERED: LEVO750T25 PO (13:48)
[2017-01-26] MEDS ORDERED: IPRA4AER INHALATION (13:48)
[2017-01-26] MEDS ORDERED: SILD20TA13 PO (13:48)
[2017-01-27] VITALS (10 sets, daily range): BP systolic 127–154; BP diastolic 73–94; PULSE 93–115; RESP 18–20
[2017-01-27] MEDS: ALBUTEROL/IPRATROPIUM (NEB) 3 ML AMP HHN SCH ×3 (01:25→15:19)
[2017-01-27] MEDS: LEVOFLOXACIN 750 MG TABLET PO SCH (05:57)
[2017-01-27] MEDS: SILDENAFIL 20 MG TAB PO SCH ×2 (08:49→12:45)
[2017-01-27] MEDS: ASPIRIN 81 MG TAB PO SCH (08:49)
[2017-01-27] MEDS: FAMOTIDINE 20 MG TAB PO SCH (08:50)
[2017-01-27] MEDS: ENOXAPARIN 30 MG/0.3 ML SYG SC SCH (08:52)
--- NOTE | 2017-01-27 10:26 | PN ---
Date/Time of Note Date/Time of Note DATE: 01/27/17 TIME: 10:22 Assessment/Plan VTE Prophylaxis VTE Prophylaxis Intervention: LMWH Lines/Catheters IV Catheter Type (from Nrs): Saline Lock Assessment/Plan Assessment/Plan 36-year-old female with: 1. Pneumonia or bronchopneumonia based on her recent symptoms and also laboratory data and CT findings. Continue Levaquin Will discharge on Combivent Outpatient PFTs to be arranged and referral to tertiary center 2. Severe pulmonary arterial hypertension ( WHO class 1, NYHA class III) confirmed on the right heart catheterization at [facility] also on Echocardiogram here at [facility] with Pulmonary Artery pressures of 115 mmHg Continue Revatio at least and patient likely need to be referred to [facility] per Pulmonary Referral to [facility] Pulmonary 3. Acute kidney injury. Resolved. Prophylaxis. Lovenox for deep venous thrombosis prophylaxis and Pepcid for gastrointestinal prophylaxis. DISPOSITION: Continue Levaquin for bronchopneumonia and rx for Severe Pulmonary Hypertension. D/c home today with referral to [facility] Pulmonary. Discharged has been delayed now for 1 day due to delay in prior auth for Revatio from [facility] Subjective 24 Hr Interval Summary Free Text/Dictation Patient remains stable and awaiting Revatio to be approved by [facility] for her to be discharged home Exam/Review of Systems Vital Signs Vitals Vital Signs Date Time Temp Pulse Resp B/P Pulse Ox O2 Delivery O2 Flow Rate FiO2 01/27/17 08:34 100 01/27/17 08:18 18 96 21 01/27/17 07:49 Nasal Cannula 2.0 01/27/17 07:43 98.1 127/94 Intake and Output 01/26/17 01/26/17 01/27/17 15:00 23:00 07:00 Intake Total 1200 ml 600 ml Balance 1200 ml 600 ml Exam Constitutional: alert, oriented, well developed Respiratory: clear to auscultation, normal air movement Cardiovascular: nl pulses, regular rate and rhythm Musculoskeletal: nl extremities to inspection Extremities: normal pulses, other (no edema, clubbing or cyanosis ) Neurological: SOLAR ELECTRIC INSTALLER II-XII intact, nl mental status, nl speech, nl strength Results Result Diagram: 01/25/17 0720 01/25/17 0720 Medications Medications Current Medications Ondansetron HCl (Zofran Inj) 4 mg Q6H PRN IV NAUSEA AND/OR VOMITING; Start at 11:30 Aspirin (Aspirin) 81 mg DAILY PO Last administered on 01/27/17 08:49; Admin Dose 81 MG; Start 01/25/17 at 09:00 Nitroglycerin (Nitroglycerin (Sl Tab) 0.4 Mg) 1 tab Q5M PRN SL CHEST PAIN; Start 01/24/17 at 11:30 Acetaminophen (Tylenol Tab) 650 mg Q6H PRN PO PAIN LEVEL 1-3 OR FEVER; Start at 11:30 Acetaminophen/ Hydrocodone Bitart ([place] (5/325)) 1 tab Q6H PRN PO PAIN LEVEL 4 -6; Start 01/24/17 at 11:30 Acetaminophen/ Hydrocodone Bitart ([place] (5/325)) 2 tab Q6H PRN PO PAIN LEVEL 7 -10 Last administered on 01/25/17 20:58; Admin Dose 2 TAB; Start 01/24/17 at 11 :30 Docusate Sodium (Colace) 100 mg Q12H PRN PO CONSTIPATION; Start 01/24/17 at 11: 30 Magnesium Hydroxide (Milk Of Mag) 30 ml DAILY PRN PO CONSTIPATION; Start at 11:30 Bisacodyl (Dulcolax Supp) 10 mg DAILY PRN [place] CONSTIPATION; Start 01/24/17 at 11 :30 Famotidine (Pepcid) 20 mg Q12 PO Last administered on 01/27/17 08:50; Admin Dose 20 MG; Start 01/24/17 at 21:00 Enoxaparin Sodium (Lovenox) 30 mg DAILY SC Last administered on 01/26/17 08:45 ; Admin Dose 30 MG; Start 01/25/17 at 09:00 Levofloxacin (Levaquin) 750 mg DAILY@06 PO Last administered on 01/27/17 05:57 ; Admin Dose 750 MG; Start 01/25/17 at 06:00 Sildenafil Citrate (Revatio) 20 mg TID PO Last administered on 01/27/17 08:49 ; Admin Dose 20 MG; Start 01/24/17 at 13:00 Guaifenesin/ Dextromethorphan (Robitussin Dm Liquid Cup) 10 ml Q4H PRN PO COUGH Last administered on 01/25/17 19:52; Admin Dose 10 ML; Start 01/24/17 at 21:00 CAMILA KIRK January 27, 2017 10:26
== END 2017-01-27 16:55 | disposition home or self-care (01) | DRG 314 ==
LOC: E/R 03:57 → MS4 07:46 → INTOOBSV 07:46 → OBSVTOIN 01-26 16:23
PROVIDERS: ADMIT Legal Medicine; ATTEND Legal Medicine
DX: I27.0 Primary pulmonary hypertension (principal); J18.9 Pneumonia, unspecified organism; N17.9 Acute kidney failure, unspecified; F17.210 Nicotine dependence, cigarettes, uncomplicated; Z79.82 Long term (current) use of aspirin
CPT/HCPCS: 36415; 71010; 71275; 80053; 80061; 81001; 82550; 82553; 83735; 83880; 84484; 85025; 85378; 85610; 85730; 93005; 93306; 94640; 94664; 96365; 96375; G0378; J0456; J0696; J1650; J7030; Q9967